=== PATIENT | male | born 1955 | race Two or more races ===

== ENCOUNTER 2020-01-26 07:53 | Emergency (ER) | payer OTHER ==
[~2020-01-26] VITALS: Ht 175.3 cm; Wt 90.0 kg
[2020-01-26 09:46] LABS: HEMATOCRIT. 49.5 % (42.0-52.0); HEMOGLOBIN. 16.1 g/dL (14.0-18.0); MEAN CORPUSCULAR HEMOGLOBIN 31.1 pg (28.0-32.0); MEAN CORPUSCULAR VOLUME 95.2 fL (80.0-94.0); RED CELL DISTRIBUTION WIDTH 13.9 % (11.6-14.6)
[2020-01-26 09:47] LABS: CHLORIDE 94 mEq/L (98-107)
[2020-01-26] MEDS ORDERED: MIDAZOLAM HCL 2 MG/2 ML VIAL IV ONE (10:00)
[2020-01-26] MEDS ORDERED: MIDAZOLAM HCL 100 MG in DEXT 5% WATER 80 ML IV ONE (10:00)
[2020-01-26] MEDS ORDERED: MIDAZOLAM HCL 100 MG in DEXT 5% WATER 80 ML IV PRN (10:15)
[2020-01-26 10:35] LABS: PLATELET ESTIMATE NORMAL
[2020-01-26 10:36] LABS: PLATELET 326 x1000/uL (130-400)
[2020-01-26] MEDS ORDERED: SODIUM CHLORIDE 0.9% 1,000 ML IV ONE (10:45)
[2020-01-26 10:55] VITALS: BP 96/75
[2020-01-26] MEDS ORDERED: NOREPINEPHRINE 8 MG in DEXT 5% WATER 242 ML IV ONE ×4 (11:30)
[2020-01-26] MEDS ORDERED: NOREPINEPHRINE 8 MG in DEXT 5% WATER 242 ML IV PRN (11:30)
== END 2020-01-26 11:56 | disposition expired ==
LOC: ER 08:00 → CANBEDREQ 01-27 16:08
DX: I46.9 Cardiac arrest, cause unspecified (principal); R09.02 Hypoxemia
CPT/HCPCS: 36415; 71045; 80053; 82962; 83880; 84484; 85025; 87040; 93005; 96361; 96374; 96375; 99285; J3490; J7030; J7060; J2250